=== PATIENT | male | born 1990 | race Caucasian/White ===

== ENCOUNTER 2019-09-03 12:56 | Emergency (ER) | payer BC ==
--- NOTE | 2019-09-03 16:23 | EDM.PDOC ---
Scribed by Deepthi Laguna 09/03/19 [id number] for Jaden Ye MD ED HPI GENERAL MEDICAL PROBLEM - General Chief Complaint: Fever Stated Complaint: FEVER/SORE THROAT/HEADACHE Time Seen by Provider: 09/03/19 15:03 Source of Information: Reports: Patient, RN, RN Notes Reviewed History Limitations: Reports: No Limitations - History of Present Illness INITIAL COMMENTS - FREE TEXT/NARRATIVE: Patient presents to ER by POV stating that he went to [place] 2 days ago for medical with son. Patient developed sore throat yesterday. The headache/chills/fever developed this morning. Patient states 'achy' in shoulders, rates pain to throat and shoulders 3/10. Pt has Hx of asthma and allergies and has been having some allergy flare up this week. Onset: Gradual Duration: Getting Worse Location: Reports: Generalized throat/shoulders Pain Score (Numeric/FACES): 3 - Related Data Allergies Allergy/AdvReac Type Severity Reaction Status Date / Time seaonal Allergy Other Uncoded 09/03/19 15:28 Home Meds: Home Meds . [Unable to Verify Home Med List] 09/03/19 [History] ED ROS PEDIATRIC - Review of Systems Review Of Systems: Comprehensive ROS is negative, except as noted in HPI. ED EXAM, GENERAL (PEDS) - Physical Exam Exam: See Below Exam Limited By: No Limitations General Appearance: WD/WN, No Apparent Distress Eyes: Bilateral: EOMI (Conjunctival cobblestoning) Ear Exam (Abbreviated): Normal External Exam, Normal Canal, Hearing Grossly Normal, Normal TMs Nose Exam: No Blood, Nasal Discharge (clear) Mouth/Throat: Normal Gums, Normal Lips, Normal Teeth, Pharyngeal Erythema, Other (Postnasal drip). No: Tonsillar Exudates Head: Atraumatic, Normocephalic Neck: Normal Inspection, Supple, Non-Tender, Full Range of Motion. No: Lymphadenopathy (R), Lymphadenopathy (L) Respiratory/Chest: No Respiratory Distress, Lungs Clear, Normal Breath Sounds, No Accessory Muscle Use, Chest Non-Tender Cardiovascular: Normal Peripheral Pulses, Regular Rate, Rhythm, No Edema, No Murmur Neurological: Alert, Oriented, No Motor/Sensory Deficits Psychiatric: Normal Affect, Normal Mood Skin Exam: Warm, Dry, Intact, Normal Color, No Rash Course - Vital Signs Last Recorded V/S: Last Vital Signs Temp 99.9 F 09/03/19 15:21 Pulse 84 09/03/19 15:21 Resp 14 09/03/19 15:21 BP 126/74 09/03/19 15:21 Pulse Ox 99 09/03/19 15:21 - Orders/Labs/Meds Orders: Active Orders 24 hr Category Date Time Status CULTURE STREP A CONFIRMATION [RM] Stat Lab 09/03/19 15:34 Results STREP SCRN A RAPID W CULT CONF [RM] Stat Lab 09/03/19 15:34 Results Isolation [COMM] Routine Oth 09/03/19 15:01 Active Labs: Laboratory Tests 09/03/19 Range/Units 15:34 SARS-CoV-2 RNA (RT-PCR) Negative (NEGATIVE) Rapid strep: Negative. Influenza A: Negative. Influenza B: Negative. Departure - Departure Time of Disposition: 16:19 Disposition: Home, Self-Care 01 Condition: Good Clinical Impression: Acute viral syndrome, Seasonal allergies - Discharge Information *PRESCRIPTION DRUG MONITORING PROGRAM REVIEWED*: Not Applicable *COPY OF PRESCRIPTION DRUG MONITORING REPORT IN PATIENT DOMINIQUE: Not Applicable Instructions: Viral Illness, Adult, Fever, Adult, [id number] Forms: ED Department Discharge Additional Instructions: Rx: Singulair 10mg Use Zyrtec 10mg one tablet daily for 1 to 2 weeks. Frequent saltwater gargle until sore throat and postnasal drip improves. Follow up in clinic if not improving in 1 week. Sepsis Event Note (ED) - Focused Exam Vital Signs: Vital Signs Temp Pulse Resp BP Pulse Ox 09/03/19 15:21 99.9 F 84 14 126/74 99 - My Orders Last 24 Hours: My Active Orders 09/03/19 15:01 Isolation [COMM] Routine 09/03/19 15:34 CULTURE STREP A CONFIRMATION [RM] Stat STREP SCRN A RAPID W CULT CONF [RM] Stat - Assessment/Plan Last 24 Hours: My Active Orders 09/03/19 15:01 Isolation [COMM] Routine 09/03/19 15:34 CULTURE STREP A CONFIRMATION [RM] Stat STREP SCRN A RAPID W CULT CONF [RM] Stat I have read and agree with the documentation that has been completed regarding this visit. By signing this record, I attest that the documentation was completed in my physical presence and is an accurate record of the encounter.
== END 2019-09-03 16:35 | disposition home or self-care (01) ==
LOC: DL.ED 12:56
DX: B34.9 Viral infection, unspecified (principal); J30.2 Other seasonal allergic rhinitis
CPT/HCPCS: 87081; 87430; 87804; 99283; U0002

== ENCOUNTER 2021-02-18 16:55 | Emergency (ER) | payer BC ==
[2021-02-18] MEDS ORDERED: Sodium Chloride 0.9% 1,000 ML IV ONE (17:05)
[2021-02-18] MEDS ORDERED: Sodium Chloride 0.9% 10 ML Syringe FLUSH PRN (17:05)
--- NOTE | 2021-02-18 17:11 | EDM.PDOC ---
ED HPI GENERAL MEDICAL PROBLEM - General Chief Complaint: Chest Pain Stated Complaint: CHEST PAINS, SHORTNESS OF BREATH Time Seen by Provider: 02/18/21 17:08 Source of Information: Reports: Patient History Limitations: Reports: No Limitations - History of Present Illness INITIAL COMMENTS - FREE TEXT/NARRATIVE: 30 y/o M c/o cough, sob, fever, cp, body aches starting on Friday. Pt reports the CP is sharp hurts with coughing. Fever started today has not taken any otc meds. Has not been around anyone sick. Had Covid over . Is fully vaccinated for COVID. Denies horton, vision prob, neck pain, back pain, abd pn. NKDA. No daily meds. No medical hx. - Related Data Allergies Allergy/AdvReac Type Severity Reaction Status Date / Time seaonal Allergy Other Uncoded 02/18/21 17:01 Home Meds: Home Meds Albuterol [Ventolin 2 MG/5 ML] 2 puff INH Q4H PRN 02/18/21 [History] Mometasone Furoate [Asmanex] 1 puff INH BID 02/18/21 [History] Past Medical History HEENT History: Reports: None Cardiovascular History: Reports: None Respiratory History: Reports: Asthma Gastrointestinal History: Reports: None Genitourinary History: Reports: None Musculoskeletal History: Reports: None Neurological History: Reports: None Psychiatric History: Reports: None Endocrine/Metabolic History: Reports: None Hematologic History: Reports: None Immunologic History: Reports: None Oncologic (Cancer) History: Reports: None Dermatologic History: Reports: None - Infectious Disease History Infectious Disease History: Reports: None - Past Surgical History HEENT Surgical History: Reports: None Cardiovascular Surgical History: Reports: None Respiratory Surgical History: Reports: None GI Surgical History: Reports: Appendectomy Musculoskeletal Surgical History: Reports: None Social & Family History - Family History Family Medical History: No Pertinent Family History - Caffeine Use Caffeine Use: Reports: None ED ROS GENERAL - Review of Systems Review Of Systems: Comprehensive ROS is negative, except as noted in HPI. ED EXAM, GENERAL - Physical Exam Exam: See Below Exam Limited By: No Limitations General Appearance: Alert, No Apparent Distress Eye Exam: Bilateral Eye: PERRL Ears: Normal External Exam, Normal Canal, Hearing Grossly Normal, Normal TMs Nose: Normal Inspection, Normal Mucosa, No Blood Throat/Mouth: Normal Inspection, Normal Lips, Normal Teeth, Normal Gums, Normal Oropharynx, Normal Voice, No Airway Compromise Head: Atraumatic, Normocephalic Neck: Normal Inspection, Supple, Non-Tender Respiratory/Chest: No Respiratory Distress, Lungs Clear, Normal Breath Sounds, No Accessory Muscle Use, Chest Non-Tender Cardiovascular: Normal Peripheral Pulses, Regular Rate, Rhythm, No Edema, No Gallop, No JVD, No Murmur, No Rub Peripheral Pulses: 2+: Radial (L), Radial (R) GI/Abdominal: Soft, Non-Tender (Male) Exam: Deferred Rectal (Males) Exam: Deferred Back Exam: Normal Inspection, Full Range of Motion, NT Extremities: Normal Inspection, Normal Range of Motion, Non-Tender, Normal Capillary Refill, No Pedal Edema Neurological: Alert, Oriented, CN II-XII Intact, Normal Cognition, Normal Gait, Normal Reflexes, No Motor/Sensory Deficits Psychiatric: Normal Affect, Normal Mood Skin Exam: Warm, Dry, Intact #1 Interpretation EKG Date: 02/18/21 Time: 17:32 Rhythm: NSR [place]: Normal P-Wave: Present QRS: Normal ST-T: Normal QT: Normal Course - Vital Signs Last Recorded V/S: Last Vital Signs Temp 99.9 F 02/18/21 17:03 Pulse 70 02/18/21 17:03 Resp 19 02/18/21 17:03 BP 143/73 H 02/18/21 17:03 Pulse Ox 100 02/18/21 17:03 - Orders/Labs/Meds Orders: Active Orders 24 hr Category Date Time Status Chest 1V Frontal [CR] Urgent Exams 02/18/21 17:17 Taken Peripheral IV Insertion Adult [OM.PC] Routine Oth 02/18/21 17:05 Ordered Labs: Laboratory Tests 02/18/21 02/18/21 02/18/21 Range/Units 17:05 17:05 17:05 WBC 7.0 (5.0-10.0) 10^3/uL RBC 4.56 L (4.6-6.2) 10^6/uL Hgb 14.7 (14.0-18.0) g/dL Hct 43.0 (40.0-54.0) % MCV 94.3 (80-100) fL MCH 32.2 (27.0-34.0) pg MCHC 34.2 (33.0-35.0) g/dL Plt Count 151 (150-450) 10^3/uL Neut % (Auto) 64.5 (42.2-75.2) % Lymph % (Auto) 15.4 L (20.5-50.1) % [place] % (Auto) 18.7 H (2-8) % Eos % (Auto) 1.0 (1.0-3.0) % Baso % (Auto) 0.4 (0.0-1.0) % Sodium 135 L (136-145) mmol/L Potassium 4.0 (3.5-5.1) mmol/L Chloride 100 (98-107) mmol/L Carbon Dioxide 27 (21-32) mmol/L Anion Gap 12.0 (7-13) mEq/L BUN 14 (7-18) mg/dL Creatinine 1.06 (0.70-1.30) mg/dL Est Cr Clr Drug Dosing 106.56 mL/min Estimated GFR (MDRD) > 60 BUN/Creatinine Ratio 13.2 (No establ ref range) Glucose 117 H (70-99) mg/dL Lactic Acid 1.2 (0.4-2.0) mmol/L Calcium 8.9 (8.5-10.1) mg/dL Magnesium 1.9 (1.8-2.4) mg/dL Total Bilirubin 0.5 (0.2-1.0) mg/dL AST 21 (15-37) U/L ALT 27 (16-63) U/L Alkaline Phosphatase 68 (46-116) U/L Troponin I High Sens 4 (<=76) pg/mL C-Reactive Protein 0.5 (0.0-0.9) mg/dL Total Protein 7.6 (6.4-8.2) g/dL Albumin 4.0 (3.4-5.0) g/dL Globulin 3.6 Albumin/Globulin Ratio 1.1 TSH, Ultra Sensitive 2.35 (0.36-3.74) uIU/mL Influenza Type A RNA (NEGATIVE) Influenza Type B RNA (NEGATIVE) SARS-CoV-2 RNA (ADOLFO) (NEGATIVE) 02/18/21 Range/Units 17:08 WBC (5.0-10.0) 10^3/uL RBC (4.6-6.2) 10^6/uL Hgb (14.0-18.0) g/dL Hct (40.0-54.0) % MCV (80-100) fL MCH (27.0-34.0) pg MCHC (33.0-35.0) g/dL Plt Count (150-450) 10^3/uL Neut % (Auto) (42.2-75.2) % Lymph % (Auto) (20.5-50.1) % [place] % (Auto) (2-8) % Eos % (Auto) (1.0-3.0) % Baso % (Auto) (0.0-1.0) % Sodium (136-145) mmol/L Potassium (3.5-5.1) mmol/L Chloride (98-107) mmol/L Carbon Dioxide (21-32) mmol/L Anion Gap (7-13) mEq/L BUN (7-18) mg/dL Creatinine (0.70-1.30) mg/dL Est Cr Clr Drug Dosing mL/min Estimated GFR (MDRD) BUN/Creatinine Ratio (No establ ref range) Glucose (70-99) mg/dL Lactic Acid (0.4-2.0) mmol/L Calcium (8.5-10.1) mg/dL Magnesium (1.8-2.4) mg/dL Total Bilirubin (0.2-1.0) mg/dL AST (15-37) U/L ALT (16-63) U/L Alkaline Phosphatase (46-116) U/L Troponin I High Sens (<=76) pg/mL C-Reactive Protein (0.0-0.9) mg/dL Total Protein (6.4-8.2) g/dL Albumin (3.4-5.0) g/dL Globulin Albumin/Globulin Ratio TSH, Ultra Sensitive (0.36-3.74) uIU/mL Influenza Type A RNA Positive H (NEGATIVE) Influenza Type B RNA Negative (NEGATIVE) SARS-CoV-2 RNA (ADOLFO) Negative (NEGATIVE) Meds: Medications Discontinued Medications Generic Name Dose Route Start Last Admin Trade Name Freq PRN Reason Stop Dose Admin Sodium Chloride 1,000 mls @ 999 mls/hr 02/18/21 17:05 02/18/21 17:12 Normal Saline IV 02/18/21 18:05 999 mls/hr .BOLUS ONE Administration Sodium Chloride 10 ml 02/18/21 17:05 02/18/21 17:10 Sodium Chloride 0.9% 10 Ml Syringe FLUSH 10 ml ASDIRECTED PRN Administration Keep Vein Open - Re-Assessments/Exams Free Text/Narrative Re-Assessment/Exam: 02/18/21 18:00 I discussed the lab, exam, cxr and ekg findings with the pt. I informed him of his influenza A infection and answered all his questions. Departure - Departure Time of Disposition: 18:02 Disposition: Home, Self-Care 01 Condition: Fair Clinical Impression: Influenza A Instructions: Influenza, Adult, [id number] Forms: ED Department Discharge Additional Instructions: Drink plenty of fluids to maintain hydration. Use tylenol and ibuprofen for pain and fever control. If any new symptoms or concerns develop contact your primary care facility or return to the ER. Sepsis Event Note (ED) - Evaluation Sepsis Screening Result: No Definite Risk - Focused Exam Vital Signs: Vital Signs Temp Pulse Resp BP Pulse Ox 02/18/21 17:03 99.9 F 70 19 143/73 H 100 - My Orders Last 24 Hours: My Active Orders 02/18/21 17:05 Peripheral IV Insertion Adult [OM.PC] Routine 02/18/21 17:17 Chest 1V Frontal [CR] Urgent - Assessment/Plan Last 24 Hours: My Active Orders 02/18/21 17:05 Peripheral IV Insertion Adult [OM.PC] Routine 02/18/21 17:17 Chest 1V Frontal [CR] Urgent
[2021-02-18 17:40] LABS: CHLORIDE,CL 100 mmol/L (98-107); SODIUM,NA 135 mmol/L (136-145)
[2021-02-18 17:50] LABS: CORONAVIRUS COVID-19 NAA NEGATIVE (NEGATIVE)
--- NOTE | 2021-02-18 19:04 | CR ---
PROCEDURE INFORMATION: Exam: XR Chest Exam date and time: 02/18/2021 5:26 PM Age: 30 years old Clinical indication: Other: Chest pain; Additional info: Cp TECHNIQUE: Imaging protocol: XR of the chest. Views: 1 view. COMPARISON: No relevant prior studies available. FINDINGS: Lungs: Unremarkable. No consolidation. Pleural spaces: Unremarkable. No pleural effusion. No pneumothorax. Heart/Mediastinum: Unremarkable. No cardiomegaly. Bones/joints: Unremarkable. IMPRESSION: No acute findings.
== END 2021-02-18 18:10 | disposition home or self-care (01) ==
LOC: DL.ED 16:55
DX: J10.1 Influenza due to other identified influenza virus with other respiratory manifestations (principal); Z91.09 Other allergy status, other than to drugs and biological substances; Z20.822 Contact with and (suspected) exposure to COVID-19
CPT/HCPCS: 0240U; 36415; 71045; 80053; 83605; 83735; 84443; 84484; 85025; 86140; 93005; 99285; J7030